=== PATIENT | male | born 1960 | race Caucasian/White ===

== ENCOUNTER → 2024-09-25 08:21 | Outpatient (REF) | payer MEDICARE, SELFPAY | LOC: RCS 08:21 | PROVIDERS: ATTENDING PHYSICIAN Internal Medicine Cardiovascular Disease; FAMILY PHYSICIAN Family Medicine | DX: Z94.2 Lung transplant status (principal) | CPT/HCPCS: 93306; 93356 ==

== ENCOUNTER 2025-01-22 16:50 | Emergency (ER) | payer MEDICARE, SELFPAY ==
[2025-01-22 13:00] VITALS: BP 158/93
--- NOTE | 2025-01-22 17:01 | ED.GENMED ---
History of Present Illness
General
Chief Complaint: Musculo-Skeletal Complaint
Source: patient
Time Seen by Provider: 01/22/25 17:00
History of Present Illness
History of Present Illness:
Patient presenting to ED for evaluation after noticing some pain, erythema, edema and ecchymosis to his left upper extremity that has been worsening over the last 1.5 weeks. Patient states that later this morning into the early afternoon he felt
pain and swelling get worse which is what prompted him to come to the ED for further evaluation. 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 Patient states he is unsure
as to how the pain started but thinks he may have been lifting heavier boxes and then he accidentally bumped/hit the RUE against his dog which exacerbated the pain. Patient maintains he was not accidentally bit or hit the dogs mouth/teeth. Patient
is denying any fevers, chills, rigors, chest pain, SOB, palpitations, cough or any other concerns presently.
Past History
Past History
ED Past Medical History: HTN and Other (dvt, interstitial lung disease, on transplant list, pneumonia, pulmonary embolus,)
ED Past Surgical History: Orthopedic and Other
Social History
Tobacco: Former smoker
Alcohol: Occasional
Drug: None
Personal:
Living: with family
Review of Systems
Review of Systems
All Other Systems: ROS reviewed and negative except as documented in HPI and ROS
Phy Exam
Physical Exam
Physical Exam:
PHYSICAL EXAM:
GENERAL: Alert , in no apparent distress
EYE: conjunctiva clear
Head: Normocephalic atraumatic
NECK: Supple,
ENT:� mmm.
LUNGS:� no acute respiratory distress
NEUROLOGICAL: Alert and oriented
SKIN: Warm and dry,� skin intact. There is erythema and edema along the dorsum of the right hand extending into the mid dorsal forearm. Darker area of ecchymosis/erythema around the webbing space. Mildly tender, not much warmer when compared to
surrounding tissues
MUSCULOSKELETAL:� well perfused. Easily palpable radial pulse. CR < 2sec. Sensation grossly intact to light touch. Patient allows for full ROM all digits, wrist and elbow without difficulty.
PSYCH: Normal and appropriate interaction.
Scores
Heart Failure Risk
Heart Failure Risk Score: Not Applicable
Heart Score for Chest Pain Patients
STEMI patient?: Not applicable
Withdrawal Assessment of Alcohol
Withdrawal Assessment Completed?: Not applicable
Course
Orders/Labs/Results
Orders:
Orders
01/22/25 16:58
US Periph Venous UPPER Ext RT Urgent
Comment:
Reason For Exam: pain
Vital Signs
Initial and Last Documented VS:
Initial Vital Signs
Temp Pulse Resp BP Pulse Ox
97.7 F 90 18 158/93 99
01/22/25 13:00 01/22/25 13:00 01/22/25 13:00 01/22/25 13:00 01/22/25 13:00
Last Documented Vital Signs
Temp Pulse Resp BP Pulse Ox
97.7 F 90 18 158/93 99
01/22/25 13:00 01/22/25 13:00 01/22/25 13:00 01/22/25 13:00 01/22/25 13:00
MDM/Problems Addressed
Differential Diagnosis Includes:
DDx: cellulitis, DVT, contusion, fracture
MDM/Problems Addressed:
Plan: Patient presenting to the ED with concern for erythema, edema, ecchymosis to the RUE. There is noticeable edema when compared to the LUE. Patient is afebrile and allows for ROM of the RUE making a septic arthritis unlikely. Patient states
biggest concern is to rule out DVT given his history of DVT in the past. Will obtain US. Given report of potential trauma will obtain XR as well although the trauma was not very significant making concern for fracture pretty minimal. Questions early
cellulitis given the tracking erythema.
Chronic conditions affecting care: Immunosuppressed and Other (Previous history of DVT/PE)
*Radiology
Radiology exam reviewed: radiology read reviewed
*Pulse Oximetry
Patient hypoxic: no
*Critical Care Note
Total Time (30-74mins, 75-104mins- exclusive of procedures): Not Applicable
Data Reviewed
Review of Other/Old Records Reveals: Labs and Records
Patient Management
Discussion with other providers: Seo Expert and Radiologist
Escalation/DeEscalation of care consider admission/obs:
Informed by radiology via [place] text that patient has occlusive superficial thrombosis of the right cephalic basilic and antecubital veins as well as nonocclusive thrombus within the right jugular vein. I discussed the case with on-call vascular
physician, Dr. Baer, who states it is okay to discharge the patient home back on his Eliquis and follow-up with his outpatient provider. Patient was advised on these findings, will follow-up with his team at [facility] with whom managed his
Eliquis previously. Patient aware of return precautions to the ER, stable for discharge
ED Attending Note
-
Portions of this chart may have been created with voice recognition software.� Occasional wrong word or��sound alike� substitutions may have occurred due to the inherent limitations of voice recognition software.
Discharge Plan
Departure
Patient Disposition: Home (Routine Discharge)
Date of Disposition: 01/22/25
Time of Disposition: 18:02
Patient with high blood pressure during this ER visit?: Yes
Discharge Problem:
Acute deep vein thrombosis (DVT) of right upper extremity
Instructions: Deep vein thrombosis (blood clot in the arm)
Prescriptions:
New
Eliquis 5 mg tablet
5 mg PO BID Qty: 70 0RF
Rx Instructions:
Take two tabs PO BID x 7 days, Take 1 tab PO BID remaining days
No Action
pantoprazole 40 MG tablet,delayed release (DR/EC)
40 mg PO DAILY
valganciclovir 450 mg tablet
450 mg PO DAILY
prednisone 10 mg Tablet
15 mg PO DAILY
atorvastatin 10 mg tablet
10 mg PO HS
mycophenolate mofetil [CellCept] 250 mg Capsule
250 mg PO BID
amlodipine 5 mg Tablet
10 mg PO DAILY
sulfamethoxazole-trimethoprim [Bactrim DS] 800-160 mg Tablet
1 tab PO MOWEFR
aspirin 81 mg Tablet,Delayed Release (Dr/Ec)
81 mg PO DAILY
calcium carbonate [Calcium 600] 600 mg calcium (1,500 mg) Tablet
600 mg PO DAILY
tacrolimus [Prograf] 0.5 mg Capsule
0.5 mg PO DAILY
tacrolimus [Prograf] 0.5 mg Capsule
0.5 mg PO Q48H@2000
voriconazole 200 mg tablet
200 mg PO BID
insulin aspart U-100 [Novolog FlexPen U-100 Insulin] 100 unit/mL (3 mL) Insulin Pen
2 - 3 unit SC AC
Levemir FlexTouch U100 Insulin 100 unit/mL (3 mL) Insulin Pen
9 unit SC HS
cholecalciferol (vitamin D3) 25 mcg (1,000 unit) Tablet
25 mcg PO DAILY
Eliquis 5 mg Tablet
5 mg PO BID
Referrals:
UNKNOWN - PT DOES,NOT KNOW [Family Provider]
Interventions
Interventions:
*Nursing Disposition Last Done: 01/22/25 18:14
ED-Musculoskeletal Assessment Last Done: 01/22/25 17:38
Discharge Date and Time
Discharge Date/Time: 01/22/25 18:16
Print Language: NAURUAN
--- NOTE | 2025-01-22 17:24 | DOWNTIME ---
There was a [facility] Doctor Downtime on 01/22/2025 from 1230 to 01/22/2025 at 1550. Downtime documentation of patient's care, including medication administrations, has been reconciled in the electronic record per guidelines. Refer to the
patient's paper chart under the miscellaneous tab to see printed paper medication records and downtime forms.
== END 2025-01-22 18:16 | disposition home or self-care (01) ==
LOC: EMR 16:50
PROVIDERS: EMERGENCY PHYSICIAN Student in an Organized Health Care Education/Training Program
DX: I82.621 Acute embolism and thrombosis of deep veins of right upper extremity (principal); I82.C11 Acute embolism and thrombosis of right internal jugular vein; D84.89 Other immunodeficiencies; Z87.891 Personal history of nicotine dependence; I10 Essential (primary) hypertension; Z86.711 Personal history of pulmonary embolism; Z86.718 Personal history of other venous thrombosis and embolism
CPT/HCPCS: 99284; 93971

== ENCOUNTER 2025-06-13 14:54 | Emergency (ER) | payer MEDICARE, SELFPAY ==
[2025-06-13 14:57] VITALS: BP 158/95
[2025-06-13 15:21] LABS: Hematocrit 49.2 % (39.0-52.0); Hemoglobin 16.6 g/dL (13.0-18.0); Mean Corp Hgb Conc. 33.7 g/dL (33.0-37.0); Mean Corpuscular Volume 90.8 fL (80.0-94.0); Nucleated Red Blood Cells % 0 % (-); Platelet Count 304 10^3/uL (130-400); Red Cell Dist. Width 14.7 % (11.5-14.5)
[2025-06-13 15:31] LABS: INR 1.12; PT 14.7 Sec (11.4-14.6)
[2025-06-13 15:32] LABS: APTT 31.1 Sec (23.4-35.0)
[2025-06-13 15:43] LABS: ALT (SGPT) 21 U/L (0-50); AST (SGOT) 20 U/L (17-59); Albumin 4.0 g/dl (3.5-5.0); Alkaline Phosphatase 63 U/L (38-126); Blood Urea Nitrogen 29 mg/dl (9-20); Calcium 10.1 mg/dl (8.4-10.2); Carbon Dioxide 24 mmol/L (22-30); Chloride 108 mmol/L (98-107); Glucose 207 mg/dl (70-99); Potassium 4.8 mmol/L (3.5-5.1); Sodium 139 mmol/L (135-145); Total Protein 6.6 g/dl (6.3-8.2); eGFR 51.03
--- NOTE | 2025-06-13 16:35 | ED.GENMED ---
History of Present Illness
General
Chief Complaint: DVT/Possible Blood Clot
Source: patient
Exam Limitations: none
Time Seen by Provider: 06/13/25 16:28
History of Present Illness
History of Present Illness:
65-year-old male lung transplant patient from 3 years ago at [facility] presents complaining of new onset pain to the posterior medial right knee. He has a history of DVTs. He has been on Eliquis. He has 2 DVTs in the right arm that we diagnosed here
in January of this year. His adds that at some point throughout his course, he had been on Eliquis and formed a clot during the time he was on Eliquis. He denies any new shortness of breath or chest pain. No recent travel or surgery. No injury
to the knee. No other complaints
Past History
Past History
ED Past Medical History: HTN and Other (dvt, interstitial lung disease, on transplant list, pneumonia, pulmonary embolus,)
ED Past Surgical History: Orthopedic and Other
Social History
Tobacco: Former smoker
Alcohol: Occasional
Drug: None
Personal:
Living: with family
Phy Exam
Physical Exam
Physical Exam:
General: Well-appearing male no acute distress
HEENT normal cephalic atraumatic
Heart: Regular rate and rhythm
Lungs: Clear no wheeze
Musculoskeletal exam: Some tenderness over the posterior medial right knee without obvious fullness or effusion. Good range of motion to the leg
Vascular: No cyanosis or edema to DP pulse right foot no calf tenderness
Course
Orders/Labs/Results
Orders:
Orders
06/13/25 15:00
US Periph Venous LOWER Ext RT Urgent
Comment:
Reason For Exam: hx of blood clots, pain swelling.
06/13/25 15:06
US Periph Venous UPPER Ext RT Urgent
Comment:
Reason For Exam: blood clots (2) on elliquis since january
06/13/25 15:07
Complete Blood Count/With Diff Urgent
Comprehensive Metabolic Panel Urgent
PTT Urgent
Prothrombin Time Urgent
Abnormal Lab Results
06/13/25
15:07
WBC 14.8 H 10^3/uL
(4.8-10.8)
RDW 14.7 H %
(11.5-14.5)
MPV 10.8 H fL
(7.4-10.4)
Abs Immat Gran (auto) 0.1 H 10^3/uL
(0-0.05)
Absolute Neuts (auto) 13.7 H 10^3/uL
(1.4-6.5)
Absolute Lymphs (auto) 0.6 L 10^3/uL
(1.2-3.4)
Neutrophils % 92.9 H %
(42.2-75.2)
Lymphocytes % 3.8 L %
(20.5-51.1)
PT 14.7 H Sec
(11.4-14.6)
Chloride 108 H mmol/L
(98-107)
BUN 29 H mg/dl
(9-20)
Creatinine 1.5 H mg/dL
(0.7-1.3)
Glucose 207 H mg/dl
(70-99)
06/13/25 15:07
06/13/25 15:07
Vital Signs
Initial and Last Documented VS:
Initial Vital Signs
Temp Pulse Resp BP Pulse Ox
98.0 F 93 18 158/95 96
06/13/25 14:57 06/13/25 14:57 06/13/25 14:57 06/13/25 14:57 06/13/25 14:57
Last Documented Vital Signs
Temp Pulse Resp BP Pulse Ox
98.0 F 93 18 158/95 96
06/13/25 14:57 06/13/25 14:57 06/13/25 14:57 06/13/25 14:57 06/13/25 16:37
MDM/Problems Addressed
Differential Diagnosis Includes:
Patient with atraumatic pain to the posterior medial right knee with history of DVTs on Eliquis. He is concerned that he is forming clots through the Eliquis. No respiratory symptoms. Past medical history complicating today's visit is a lung
transplant patient. I reviewed his visit from January of this year which demonstrated ultrasound of his right arm that had several clots in it. Ultrasound of the right leg and arm pending for today.
*Pulse Oximetry
SaO2: 96
Patient hypoxic: no
*Critical Care Note
Total Time (30-74mins, 75-104mins- exclusive of procedures): Not Applicable
Update Note
Update Note:
Ultrasound right leg negative for DVT. Patient reassured. Copy of both ultrasounds were printed out for him to take back to his specialist at [facility]. No indication for any change in management at this time. Stable for discharge
ED Attending Note
-
Portions of this chart may have been created with voice recognition software.� Occasional wrong word or��sound alike� substitutions may have occurred due to the inherent limitations of voice recognition software.
Discharge Plan
Departure
Patient Disposition: Home (Routine Discharge)
Date of Disposition: 06/13/25
Time of Disposition: 18:14
Patient with high blood pressure during this ER visit?: No
Discharge Problem:
Leg pain
Prescriptions:
No Action
pantoprazole 40 MG tablet,delayed release (DR/EC)
40 mg PO DAILY
valganciclovir 450 mg tablet
450 mg PO DAILY
prednisone 10 mg Tablet
15 mg PO DAILY
atorvastatin 10 mg tablet
10 mg PO HS
mycophenolate mofetil [CellCept] 250 mg Capsule
250 mg PO BID
amlodipine 5 mg Tablet
10 mg PO DAILY
sulfamethoxazole-trimethoprim [Bactrim DS] 800-160 mg Tablet
1 tab PO MOWEFR
aspirin 81 mg Tablet,Delayed Release (Dr/Ec)
81 mg PO DAILY
calcium carbonate [Calcium 600] 600 mg calcium (1,500 mg) Tablet
600 mg PO DAILY
tacrolimus [Prograf] 0.5 mg Capsule
0.5 mg PO DAILY
tacrolimus [Prograf] 0.5 mg Capsule
0.5 mg PO Q48H@2000
voriconazole 200 mg tablet
200 mg PO BID
insulin aspart U-100 [Novolog FlexPen U-100 Insulin] 100 unit/mL (3 mL) Insulin Pen
2 - 3 unit SC AC
Levemir FlexTouch U100 Insulin 100 unit/mL (3 mL) Insulin Pen
9 unit SC HS
cholecalciferol (vitamin D3) 25 mcg (1,000 unit) Tablet
25 mcg PO DAILY
Eliquis 5 mg Tablet
5 mg PO BID
Eliquis 5 mg tablet
5 mg PO BID Qty: 70 0RF
Rx Instructions:
Take two tabs PO BID x 7 days, Take 1 tab PO BID remaining days
Referrals:
Han Jones MD [Family Provider, Family Practice]
Activity Restrictions/Additional Instructions:
Continue current medication. Return here if worse otherwise follow-up with your doctors
Interventions
Interventions:
*Risk Screen - Suicide Last Done: 06/13/25 14:59
*General Assessment Last Done: 06/13/25 14:59
*Neglect/Abuse Screening Last Done: 06/13/25 14:59
*ED COVID-19 Vaccine History Last Done: 06/13/25 14:59
*ED Influenza Vaccine History Last Done: 06/13/25 14:59
Discharge Date and Time
Print Language: CHINESE
== END 2025-06-13 18:27 | disposition home or self-care (01) ==
LOC: EMR 14:54
PROVIDERS: Emergency Medicine; EMERGENCY PHYSICIAN Emergency Medicine; FAMILY PHYSICIAN Family Medicine
DX: M79.604 Pain in right leg (principal); M25.561 Pain in right knee; I10 Essential (primary) hypertension; Z79.01 Long term (current) use of anticoagulants; Z86.711 Personal history of pulmonary embolism; Z86.718 Personal history of other venous thrombosis and embolism; Z87.01 Personal history of pneumonia (recurrent); Z87.891 Personal history of nicotine dependence; Z94.2 Lung transplant status
CPT/HCPCS: 99284; 80053; 85025; 85610; 85730; 93971